=== PATIENT | female | born 1980 | race Caucasian/White ===

== ENCOUNTER → 2023-11-11 | Emergency (ER) | payer BC ==
[~2023-11-11] MED LIST: CEFTRIAXONE 1000 MG/VIAL ONE; FENTANYL CITR 100 MCG/2 ML ONE; HYDROMORPHONE HCL 1 MG/ML INJ ONE; MORPHINE 4 MG/ML SYR ONE; NA CHLORIDE 0.9% 1,000 ML ONE; NA CHLORIDE 0.9% 100 ML ONE; NA CHLORIDE 0.9% 2,000 ML ONE; NS KCL 20MEQ 1,000 ML IV ONE; ONDANSETRON 4 MG/2 ML VIAL ONE; PANTOPRAZOLE 40 MG INJ ONE; PIPERACIL/TAZO 3.375 GM VIAL IV ONE; PROMETHAZINE INJ 25 MG/ML AMP ONE
--- OUTSIDE RECORDS SUMMARY | 2023-11-11 18:03 | XMS REPORT | Continuity of Care Document ---
Author Name Unknown Address [address] [facility] [address] [place] [address] [facility] Address [address] [facility] [address] [place] [address] Care Team Providers Care Public Health Social Worker Name Role Phone Mabel Tavarez Primary Care Physician [phone] SISSON_C Attending Clinician Unavailable GC_GCBZW_Geronimoa_S Attending Clinician Unavaila nelly Pob, [facility] Lab Main Attending Clinician Delvis Orozco MD Attending Clinician [phone] DELVIS CABRAL Attending Clinician Elkin gonsalez Doctor Unassigned, [place] Attending Clinician U Alvaro Aquino DO Attending Clinician [phone] Rowdy Downing MD Attending Clinician [phone] ALVARO IGLESIAS Attending Clinician Unavailable SISSON_Ian Admitting Clinician Unavailable GC_GCBZW_Penelopeyala_S Admitting Clinician Unavaila nelly Payers Payer Name Policy Type Policy Number Effective Date Expirati on Date Source Problems Condition Name Condition Details Condition Category Status Onset Date Resolution Date Last Treatment Date Treating Clinician Comments Source No known active problems No known active problems Disease [facility] Allergies, Adverse Reactions, Alerts Allergy Name Allergy Type Status Severity Reaction(s) Onset Date Inactive Date Treating Clinician Comments Source NO KNOWN ALLERGIE S Drug Class Active [facility] Social History Social Habit Start Date Stop Date Quantity Comments Source Exposure to SARS-CoV-2 (event) Yes [facility] Sex Assigned At 1980 00:00:00 1980 00:00:00 [facility] Smoking Status Start Date Stop Date Source Tobacco smoking consumption unknown [facility] Medications Ordered Medication Name Filled Medication Name Start Date Stop Date Current Medication? Ordering Clinician Indication Dosage Frequency Signature (SIG) Comments Components Source ondansetron (ZOFRAN-ODT ) disintegrat ing tablet 4 mg 04-08 06:00: 00 04-08 05:00 :00 No 4mg 4 mg, Oral, ONCE, 1 dose, 04/08/20 at 0100, Routine [facility] HYDROcodone -acetaminop hen (NORCO) 10-325 mg tablet 1 tablet 04-08 04:45: 00 04-08 03:32 :00 No 1{tbl} 1 tablet, Oral, ONCE, 1 dose, [facility] 04/07/20 at 2345, Routine [facility] iohexol (OMNIPAQUE 350 BULK-75 mL) injection 75 mL 04-08 00:30: 00 04-08 00:30 :00 No 75mL 75 mL, Intravenou s, ONCE, 1 dose, [facility] 04/07/20 at 1945, Routine [facility] azithromyci n 250 mg tablet 04-08 00:00: 00 Yes [id number] 250mg Take 1 tablet by mouth daily. [facility] ondansetron (ZOFRAN) 4 mg tablet 04-08 00:00: 00 Yes [id number] 4mg Take 1 tablet by mouth every 8 (eight) hours as needed for Nausea and Vomiting (N/V). [facility] benzonatate 200 mg capsule 04-08 00:00: 00 Yes [id number] 200mg Take 1 capsule by mouth 3 (three) times daily as needed for Cough. [facility] ondansetron (ZOFRAN ODT) 4 mg disintegrat ing tablet 04-08 00:00: 00 Yes [id number] 4mg Take 1 tablet by mouth every 8 (eight) hours as needed for Nausea and Vomiting (N/V). [facility] azithromyci n 250 mg tablet 04-08 00:00: 00 Yes [id number] 250mg Take 1 tablet by mouth daily. [facility] ondansetron (ZOFRAN) 4 mg tablet 04-08 00:00: 00 Yes [id number] 4mg Take 1 tablet by mouth every 8 (eight) hours as needed for Nausea and Vomiting (N/V). [facility] benzonatate 200 mg capsule 04-08 00:00: 00 Yes [id number] 200mg Take 1 capsule by mouth 3 (three) times daily as needed for Cough. [facility] ondansetron (ZOFRAN ODT) 4 mg disintegrat ing tablet 04-08 00:00: 00 Yes [id number] 4mg Take 1 tablet by mouth every 8 (eight) hours as needed for Nausea and Vomiting (N/V). [facility] azithromyci n 250 mg tablet 04-08 00:00: 00 Yes [id number] 250mg Take 1 tablet by mouth daily. [facility] ondansetron (ZOFRAN) 4 mg tablet 04-08 00:00: 00 Yes [id number] 4mg Take 1 tablet by mouth every 8 (eight) hours as needed for Nausea and Vomiting (N/V). [facility] benzonatate 200 mg capsule 04-08 00:00: 00 Yes [id number] 200mg Take 1 capsule by mouth 3 (three) times daily as needed for Cough. [facility] ondansetron (ZOFRAN ODT) 4 mg disintegrat ing tablet 04-08 00:00: 00 Yes [id number] 4mg Take 1 tablet by mouth every 8 (eight) hours as needed for Nausea and Vomiting (N/V). [facility] azithromyci n 250 mg tablet 04-08 00:00: 00 Yes [id number] 250mg Take 1 tablet by mouth daily. [facility] ondansetron (ZOFRAN) 4 mg tablet 04-08 00:00: 00 Yes [id number] 4mg Take 1 tablet by mouth every 8 (eight) hours as needed for Nausea and Vomiting (N/V). [facility] benzonatate 200 mg capsule 04-08 00:00: 00 Yes [id number] 200mg Take 1 capsule by mouth 3 (three) times daily as needed for Cough. [facility] ondansetron (ZOFRAN) 4 mg tablet 04-08 00:00: 00 Yes [id number] 4mg Take 1 tablet by mouth every 8 (eight) hours as needed for Nausea and Vomiting (N/V). [facility] benzonatate 200 mg capsule 04-08 00:00: 00 Yes [id number] 200mg Take 1 capsule by mouth 3 (three) times daily as needed for Cough. [facility] ondansetron (ZOFRAN ODT) 4 mg disintegrat ing tablet 04-08 00:00: 00 Yes [id number] 4mg Take 1 tablet by mouth every 8 (eight) hours as needed for Nausea and Vomiting (N/V). [facility] ondansetron (ZOFRAN ODT) 4 mg disintegrat ing tablet 04-08 00:00: 00 Yes [id number] 4mg Take 1 tablet by mouth every 8 (eight) hours as needed for Nausea and Vomiting (N/V). [facility] azithromyci n 250 mg tablet 04-08 00:00: 00 Yes [id number] 250mg Take 1 tablet by mouth daily. [facility] NaCl 0.9% (NS) bolus infusion 1,000 mL 04-08 00:00: 00 04-08 05:00 :00 No 1000mL at 999 mL/hr, 1,000 mL, IV Piggyback, ONCE, 1 dose, [facility] 04/07/20 at 1900, STAT [facility] compounded medication Semagltuide sq qw compounded medication Semagltuide sq qw No compounded medication Semagltuid e sq qw [facility] ondansetron 4 mg disintegrat ing tablet Place 1 tablet every 6 hours by translingua l route as needed. ondansetron 4 mg disintegr[address] ing tablet Place 1 tablet every 6 hours by translingua l route as needed. No 1 Q6H ondansetro n 4 mg disintegra ting tablet Place 1 tablet every 6 hours by translingu al route as needed. [facility] bromphenira mine-pseudo ephedrine-D M 2 mg-30 mg-10 mg/5 mL oral syrup TAKE 10 ML EVERY 8 HOURS NEEDED FOR COUGH AND CONGESTION bromphenira mine-pseudo ephedrine-D M 2 mg-30 mg-10 mg/5 mL oral syrup TAKE 10 ML EVERY 8 HOURS NEEDED FOR COUGH AND CONGESTION No bromphenir amine-pseu doephedrin e-DM 2 mg-30 mg-10 mg/5 mL oral syrup TAKE 10 ML EVERY 8 HOURS NEEDED FOR COUGH AND CONGESTION [facility] compounded medication Semagltuide sq qw compounded medication Semagltuide sq qw No compounded medication Semagltuid e sq qw [facility] compounded medication Semagltuide sq qw compounded medication Semagltuide sq qw No compounded medication Semagltuid e sq qw [facility] Kristalose 20 gram oral packet TAKE 1-2 PACKETS BY MOUTH DAILY. Kristalose 20 gram oral packet TAKE 1-2 PACKETS BY MOUTH DAILY. No Kristalose 20 gram oral packet TAKE 1-2 PACKETS BY MOUTH DAILY. [facility] lactulose 10 gram/15 mL oral solution TAKE 15 ML BY MOUTH DAILY lactulose 10 gram/15 mL oral solution TAKE 15 ML BY MOUTH DAILY No lactulose 10 gram/15 mL oral solution TAKE 15 ML BY MOUTH DAILY [facility] ondansetron 4 mg disintegrat ing tablet PLACE 1 TABLET ON THE TONGUE EVERY 6 HOURS NEEDED ondansetron 4 mg disintegrat ing tablet PLACE 1 TABLET ON THE TONGUE EVERY 6 HOURS NEEDED No ondansetro n 4 mg disintegra ting tablet PLACE 1 TABLET ON THE TONGUE EVERY 6 HOURS NEEDED [facility] oseltamivir 75 mg capsule TAKE 1 CAPSULE BY MOUTH TWICE A DAY oseltamivir 75 mg capsule TAKE 1 CAPSULE BY MOUTH TWICE A DAY No oseltamivi r 75 mg capsule TAKE 1 CAPSULE BY MOUTH TWICE A DAY [facility] promethazin e 25 mg tablet TAKE 1 TABLET BY MOUTH EVERY 4 TO 6 HOURS NEEDED FOR NAUSEA promethazin e 25 mg tablet TAKE 1 TABLET BY MOUTH EVERY 4 TO 6 HOURS NEEDED FOR NAUSEA No promethazi ne 25 mg tablet TAKE 1 TABLET BY MOUTH EVERY 4 TO 6 HOURS NEEDED FOR NAUSEA [facility] compounded medication Semagltuide sq qw compounded medication Semagltuide sq qw No compounded medication Semagltuid e sq qw [facility] ondansetron 4 mg disintegrat ing tablet Place 1 tablet every 6 hours by translingua l route as needed. ondansetron 4 mg disintegrat ing tablet Place 1 tablet every 6 hours by translingua l route as needed. No 1 Q6H ondansetro n 4 mg disintegra ting tablet Place 1 tablet every 6 hours by translingu al route as needed. [facility] Vital Signs Vital Name Observation Time Observation Value Comments S ource BP Diastolic 2023-09-20 00:00:00 93 mm[Hg] [facility] BP Systolic 2023-09-20 00:00:00 131 mm[Hg] [facility] Body Weight 2023-09-20 00:00:00 3194 [oz_av] [facility] BMI (Body Mass Index) 2023-09-20 00:00:00 35.4 kg/m2 [facility] Height 2023-09-20 00:00:00 63 [in_i] [facility] Body Weight 2023-06-19 00:00:00 3637 [oz_av] [facility] BP Diastolic 2023-06-19 00:00:00 73 mm[Hg] [facility] BMI (Body Mass Index) 2023-06-19 00:00:00 40.3 kg/m2 [facility] Height 2023-06-19 00:00:00 63 [in_i] [facility] BP Systolic 2023-06-19 00:00:00 137 mm[Hg] [facility] Heart rate 2020-04-08 04:30:00 84 /min [facility] Respiratory rate 2020-04-08 04:30:00 15 /min [facility] Oxygen saturation in Arterial blood by Pulse oximetry 2020-04-08 04:30:00 96 /min [facility] Systolic blood pressure 2020-04-08 04:00:00 117 mm[Hg] [facility] Diastolic blood pressure 2020-04-08 04:00:00 74 mm[Hg] [facility] Body temperature 2020-04-07 22:42:00 36.44 Megha [facility] Body height 2020-04-07 22:42:00 160 cm [facility] Body weight 2020-04-07 22:42:00 97.523 kg [facility] BMI 2020-04-07 22:42:00 38.09 kg/m2 [facility] Heart rate 2020-04-08 04:30:00 84 /min [facility] Respiratory rate 2020-04-08 04:30:00 15 /min [facility] Oxygen saturation in Arterial blood by Pulse oximetry 2020-04-08 04:30:00 96 /min [facility] Systolic blood pressure 2020-04-08 04:00:00 117 mm[Hg] [facility] Diastolic blood pressure 2020-04-08 04:00:00 74 mm[Hg] [facility] Body temperature 2020-04-07 22:42:00 36.44 Megha [facility] Body height 2020-04-07 22:42:00 160 cm [facility] Body weight 2020-04-07 22:42:00 97.523 kg [facility] BMI 2020-04-07 22:42:00 38.09 kg/m2 [facility] Procedures Procedure Date / Time Performed Performing Clinician Source ANTI-NUCLEAR ANTIBODY SCREEN 2022-11-16 14:33:00 Melissa Leigh [facility] ANTI-NUCLEAR ANTIBODY-PATHOLOGIST INTERPRETATION 2022-11-16 14:33:00 Melissa Leigh [facility] C-REACTIVE PROTEIN 2022-11-16 14:33:[facility] 2022-11-16 14:33:00 Melissa Leigh [facility] FREE T4 2022-11-16 14:33:00 Melissa Leigh [facility] THYROID STIMULATING HORMONE 2022-11-16 14:33:00 Melissa Leigh [facility] COMP. METABOLIC PANEL ([id number]) 2022-11-16 14:33:00 [facility] SED[facility]ENT[facility] RATE 2022-11-16 14:33:00 Reese [facility] CBC WITH DIFF 2022-11-16 14:33:00 Melissa Leigh [facility] URINALYSIS 2022-11-16 14:33:00 Melissa Leigh [facility] URINE CULTURE 2022-11-16 14:33:00 Melissa Leigh [facility] VITAMIN D, 25-OH 2022-11-16 14:33:00 Melissa [facility] ASSIGNMENT OF BENEFITS 2022-11-16 13:57:43 Docto r Unassigned, [place] [facility] CT CHEST PULMONARY ANGIOGRAM 2020-04-08 00:38:55 Rowdy Downing [facility] XR CHEST 1 VW 2020-04-07 23:52:10 Alvaro Iglesias [facility] FERRITIN SERUM 2020-04-07 23:10:[address] [facility] COMP. METABOLIC PANEL ([id number]) 2020-04-07 23:10:00 Alvaro Iglesias [facility] CBC WITH DIFF 2020-04-07 23:10:00 Alvaro Iglesias [facility] D-DIMER 2020-04-07 23:10:00 Alvaro Iglesias [facility] NOTICE OF PRIVACY PRACTICES 2020-04-07 22:33:44 Doctor Unassigned, [place] [facility] Encounters Start Date/Time End Date/Time Encounter Type Admission Type Attending Clinicians Care Facility Care Department Encounter ID Source 2023-09-20 00:00:00 2023-09-20 00:00:00 Outpatient SISSON_C [facility] [id number] [facility] 2023-09-20 00:00:00 2023-09-20 00:00:00 Lazaro Aguilera, MSN, INVESTMENT UNDERWRITER, SENIOR ELECTRONICS TECHNICIAN-C: [address], [place] [address] , Ph. [facility], Lazaro Aguilera, MSN, SENIOR ELECTRONICS TECHNICIAN-C [id number] [facility] 2023-09-05 00:00:00 2023-09-05 00:00:00 Outpatient SISSON_C [facility] [id number] [facility] 2023-07-23 00:00:00 2023-07-23 00:00:00 Outpatient SISSON_C [facility] [id number] [facility] 2023-07-14 00:00:00 2023-07-14 00:00:00 Outpatient GC_GCBZW_Ka diyala_S [facility] [id number] [facility] 2023-06-19 00:00:00 2023-06-19 00:00:00 Outpatient SISSON_C [facility] [id number] [facility] 2023-06-19 00:00:00 2023-06-19 00:00:00 Lazaro Aguilera, MSN, INVESTMENT UNDERWRITER, SENIOR ELECTRONICS TECHNICIAN-C: [address], [place] [address] , Ph. [facility], Lazaro Aguilera, MSN, SENIOR ELECTRONICS TECHNICIAN-C [id number] [facility] 2023-04-10 00:00:00 2023-04-10 00:00:00 Outpatient ALEXA [facility] [id number] [facility] 2022-11-16 08:00:00 2022-11-16 08:15:00 Vending Machine Servicer Visit [place], Adc Lab Main [facility] [id number] [facility] 2022-11-16 08:00:00 2022-11-16 08:00:00 Outpatient Cailin DELVIS CABRAL [facility] [id number] [facility] 2022-11-16 00:00:00 2022-11-16 00:00:00 Orders Only Doctor Unassigned, [place] [facility] [id number] [facility] 2020-04-07 17:45:47 2020-04-08 01:42:00 [facility] [id number] [facility] 2020-04-07 17:45:47 2020-04-08 01:42:00 [facility] [id number] 2020-04-07 17:45:47 2020-04-07 17:45:47 Emergency X ALVARO IGLESIAS [facility] ERT [id number] [facility] Results Test Description Test Time Test Comments Results Result Comments Source ANTI-NUCLEAR ANTIBODY-PATHOLOGI ST INTERPRETATION 23:47:59 SANDRA - Pathologist InterpretationANA HEp-2 IIFA Pathologist Interpretation Report Patient Name: Bradford Fatima ? : 1980 ??Antinuclear Antibody (SANDRA) Test (Anti-Cell Antibodies Test) Indirect Immunofluorescence Assay on HEp-2 Cells Screening titer: 1:80 (adults, > 18 years old), 1:40 (pediatrics, <= 18 years old)?Result: The antinuclear antibody (SANDRA) screen is negative on interpretation. Remarks:This patient has a negative antinuclear antibody (SANDRA) screening test. This suggests that the patient likely does not have a systemic autoimmune rheumatic disease that is strongly associated with a positive SANDRA, such as systemic lupus erythematosus (SANDRA positive in ~95-100%), systemic sclerosis (SANDRA positive in ~60-80%), or the following disorders in which SANDRA positivity is part of the diagnostic criteria: drug-induced lupus, autoimmune hepatitis, or mixed connective tissue disease. However, the SANDRA may be negative in rare cases of systemic lupus erythematosus and systemic sclerosis. The SANDRA may also be negative in ~20% of patients presenting with autoimmune hepatitis. Additionally, SANDRA positivity is less sensitive in the diagnosis of Sjogren's syndrome (~40-70%) and dermatomyositis/polym yositis (~30-80%). The SANDRA also has limited diagnostic utility in vasculitis, as the SANDRA may be negative in this autoimmune condition. The SANDRA test is not useful for the diagnosis of rheumatoid arthritis, multiple sclerosis, idiopathic thrombocytopenic purpura, thyroid disease, discoid lupus, or fibromyalgia. ? Therefore, a diagnosis cannot be based exclusively on SANDRA detection and/or pattern and thus should be made via the integration of patient history, physical exam findings, and other diagnostic tests as clinically indicated. References: - Lamonte A, Phillip R, Tawanda J, Alverto DH, Magdaleno PERSON. Guidelines for clinical use of the antinuclear antibody test and tests for specific autoantibodies to nuclear antigens. [employer]. Arch Pathol Lab Med. 2000;124(1):71-81. doi:10.5858/1999-124- [id number]-GFCUMARTÍN- Jens CL, Harley D, Yeison DN, et al. Diagnosis and Management of Autoimmune Hepatitis in Adults and Children: 2019 Practice Guidance and Guidelines From the [place] for the Study of Liver Diseases. Hepatology. 2020;72(2):671-722. doi:10.1002/hep.89526 - Familia C, Jono BECKER, Bre Duque. Rational use of blood tests in the evaluation of rheumatic diseases. Mo Med. 2012;109(1):59-63. Maricel Ellis MD ?11/19/2022 ?5:47 PM11/19/2022 5:47 PM [facility] [id number] 15:51:56* Test Item Value Reference Range Interpretation Comme nts C3 (test code = 2441956205) 160 mg/dL 86-184 Lab Interpretation (test cod e = 85092-5) Normal [place] [address] [id number] 15:51:56* Test Item Value Reference Range Interpretation Comme nts C4 (test code = 8570159805) 31 mg/dL 20-59 Lab Interpretation (test cod e = 73175-7) Normal [facility] [id number] 15:51:56* Test Item Value Reference Range Interpretation Comme nts CRP (test code = 3833780812) 0.8 mg/dL <=0.8 H Lab Interpretation (test cod e = 05285-8) Abnormal [facility] [id number] 15:51:56* Test Item Value Reference Range Interpretation Comme nts C3 (test code = 2979477813) 160 mg/dL 86-184 Lab Interpretation (test cod e = 94730-7) Normal [facility] [id number] 15:51:56* Test Item Value Reference Range Interpretation Comme nts C4 (test code = 4026092892) 31 mg/dL 20-59 Lab Interpretation (test cod e = 19536-8) Normal [facility] [id number] 15:51:56* Test Item Value Reference Range Interpretation Comme nts CRP (test code = 1876592005) 0.8 mg/dL <=0.8 H Lab Interpretation (test cod e = 37427-6) Abnormal [facility], [id number] 22:16:42* Test Item Value Reference Range Interpretation Comme nts VIT D 25OH (test code = 65616-8) 40 ng/mL 25-80 FEDE (test code = FEDE) Deficiency: <20 ng/mLInsufficiency : 20-24 ng/mLOptimal: 25-80 ng/mL Lab Interpretation (test code = 93113-8) Normal [facility], [id number] 22:16:42* Test Item Value Reference Range Interpretation Comme nts VIT D 25OH (test code = 99617-2) 40 ng/mL 25-80 FEDE (test code = FEDE) Deficiency: <20 ng/mLInsufficiency : 20-24 ng/mLOptimal: 25-80 ng/mL Lab Interpretation (test code = 39975-4) Normal [facility] [id number] 17:37:53* Test Item Value Reference Range Interpretation Comme nts ESR (test code = 50665-3) 15 See_Comment [Automated message] The system which generated this result transmitted reference range: 0 - 20 mm/HR. The reference range was not used to interpret this result as normal/abnormal. Lab Interpretation (test code = 83181-0) Normal [facility] [id number] 17:37:53* Test Item Value Reference Range Interpretation Comme nts ESR (test code = 59485-7) 15 See_Comment [Automated message] The system which generated this result transmitted reference range: 0 - 20 mm/HR. The reference range was not used to interpret this result as normal/abnormal. Lab Interpretation (test code = 61135-4) Normal [facility] 16:49:12* Test Item Value Reference Range Interpretation Comme nts FREE T4 (test code = 8703562474) 1.13 See_Comment [Automated messa ge] The system which generated this result transmitted reference range: 0.78 - 2.20 ng/dL:. The reference range was not used to interpret this result as normal/abnormal. Lab Interpretation (test code = 39945-5) [facility] 16:49:12* Test Item Value Reference Range Interpretation Comme nts FREE T4 (test code = 0005676545) 1.13 See_Comment [Automated messa ge] The system which generated this result transmitted reference range: 0.78 - 2.20 ng/dL:. The reference range was not used to interpret this result as normal/abnormal. Lab Interpretation (test code = 15115-5) Normal [facility] [id number] 16:46:49 * Test Item Value Reference Range Interpretation Comme nts TSH (test code = 5397048722) 3.54 See_Comment [Automated messa ge] The system which generated this result transmitted reference range: 0.45 - 4.70 mIU/L. The reference range was not used to interpret this result as normal/abnormal. Lab Interpretation (test code = 39255-1) Normal [facility] [id number] 16:46:49 * Test Item Value Reference Range Interpretation Comme nts TSH (test code = 6682428894) 3.54 See_Comment [Automated messa ge] The system which generated this result transmitted reference range: 0.45 - 4.70 mIU/L. The reference range was not used to interpret this result as normal/abnormal. Lab Interpretation (test code = 95194-7) Normal [facility]. METABOLIC PANEL (89377)2022-11-16 16:23:05* Test Item Value Reference Range Interpretation Comme nts NA (test code = 2652869645) 138 mmol/L 135-145 K (test code = 3757036341) 4.2 mmol/L 3.5-5.0 CL (test code = 8340056934) 101 mmol/L 98-108 CO2 TOTAL (test code = 0520389511) 29 mmol/L 23-31 AGAP (test code = 1504623760) 8 2-16 BUN (test code = 3605576516) 15 mg/dL 7-23 GLUCOSE (test code = 1753785336) 92 mg/dL 70-110 CREATININE (test code = 8753840557) 0.64 mg/dL 0.50-1.04 TOTAL BILI (test code = 7813494450) 0.6 mg/dL 0.1-1.1 CALCIUM (test code = 7615992345) 9.1 mg/dL 8.6-10.6 T PROTEIN (test code = 3344322519) 7.3 g/dL 6.3-8.2 ALBUMIN (test code = 0816262176) 4.5 g/dL 3.5-5.0 ALK PHOS (test code = 5405551503) 56 U/L 34-122 ALTv (test code = 1742-6) 41 U/L 5-35 H AST(SGOT) (test code = 6851617637) 31 U/L 13-40 eGFR (test code = 8422873294) 102.3 mL/min/1.73m2 FEDE (test code = FEDE) Association of Glomerular Filtration Rate (GFR) and Staging of Kidney Disease* + --+ --+ ------+| GFR (mL/min/1.73 m2) ?| With Kidney Damage ?| ?Without Kidney Damage+ --------+ --------+ +| ?>90 ?| ?Stage one ?| ? Normal ?+ ---+ ---+ -------+| ?60-89 ?| ?Stage two ?| ? Decreased GFR ? + --+ --+ ------+| ?30-59 ?| ?Stage three ?| ? Stage three ? + --+ --+ ------+| ?15-29 ?| ?Stage four ? | ? Stage four ?+ ---+ ---+ -------+| ?<15 (or dialysis) ? ?| ?Stage five ? | ? Stage five ?+ ---+ ---+ -------+ *Each stage assumes the associated GFR level has been in effect for at least three months. ?Stages 1 to 5, with or without kidney disease, indicate chronic kidney disease. Notes: Determination of stages one and two (with eGFR >59mL/min/1.73 m2) requires estimation of kidney damage for at least three months as defined by structural or functional abnormalities of the kidney, manifested by either:Pathological abnormalities or Markers of kidney damage (including abnormalities in the composition of the blood or urine or abnormalities in imaging tests). Lab Interpretation (test code = 83051-5) Abnormal [facility]. METABOLIC PANEL ([id number])2022-11-16 16:23:05* Test Item Value Reference Range Interpretation Comme nts NA (test code = 8332254768) 138 mmol/L 135-145 K (test code = 1361090415) 4.2 mmol/L 3.5-5.0 CL (test code = 6258951056) 101 mmol/L 98-108 CO2 TOTAL (test code = 1399376633) 29 mmol/L 23-31 AGAP (test code = 3758633114) 8 2-16 BUN (test code = 0003552924) 15 mg/dL 7-23 GLUCOSE (test code = 6973803231) 92 mg/dL 70-110 CREATININE (test code = 9557874504) 0.64 mg/dL 0.50-1.04 TOTAL BILI (test code = 8594751420) 0.6 mg/dL 0.1-1.1 CALCIUM (test code = 3545589743) 9.1 mg/dL 8.6-10.6 T PROTEIN (test code = 9363322899) 7.3 g/dL 6.3-8.2 ALBUMIN (test code = 3213129726) 4.5 g/dL 3.5-5.0 ALK PHOS (test code = 6923261090) 56 U/L 34-122 ALTv (test code = 1742-6) 41 U/L 5-35 H AST(SGOT) (test code = 2159369739) 31 U/L 13-40 eGFR (test code = 0297500693) 102.3 mL/min/1.73m2 FEDE (test code = FEDE) Association of Glomerular Filtration Rate (GFR) and Staging of Kidney Disease* + --+ --+ ------+| GFR (mL/min/1.73 m2) ?| With Kidney Damage ?| ?Without Kidney Damage+ --------+ --------+ +| ?>90 ?| ?Stage one ?| ? Normal ?+ ---+ ---+ -------+| ?60-89 ?| ?Stage two ?| ? Decreased GFR ? + --+ --+ ------+| ?30-59 ?| ?Stage three ?| ? Stage three ? + --+ --+ ------+| ?15-29 ?| ?Stage four ? | ? Stage four ?+ ---+ ---+ -------+| ?<15 (or dialysis) ? ?| ?Stage five ? | ? Stage five ?+ ---+ ---+ -------+ *Each stage assumes the associated GFR level has been in effect for at least three months. ?Stages 1 to 5, with or without kidney disease, indicate chronic kidney disease. Notes: Determination of stages one and two (with eGFR >59mL/min/1.73 m2) requires estimation of kidney damage for at least three months as defined by structural or functional abnormalities of the kidney, manifested by either:Pathological abnormalities or Markers of kidney damage (including abnormalities in the composition of the blood or urine or abnormalities in imaging tests). Lab Interpretation (test code = 74634-4) Abnormal [facility] WITH [id number] 14:45:11* Test Item Value Reference Range Interpretation Comme nts WBC (test code = 6690-2) 10.90 See_Comment [Automated [employer]] The system which generated this result transmitted reference range: 4.30 - 11.10 10*3/?L. The reference range was not used to interpret this result as normal/abnormal. RBC (test code = 789-8) 4.57 See_Comment [[employer]] The system which generated this result transmitted reference range: 3.93 - 5.25 10*6/?L. The reference range was not used to interpret this result as normal/abnormal. HGB (test code = 718-7) 13.4 g/dL 11.6-15.0 HCT (test code = 4544-3) 41.1 % 35.7-45.2 MCV (test code = 787-2) 89.9 fL 80.6-95.5 MCH (test code = 785-6) 29.3 pg 25.9-32.8 MCHC (test code = 786-4) 32.6 g/dL 31.6-35.1 RDW-SD (test code = 25451-8) 41.8 fL 39.0-49.9 RDW-CV (test code = 788-0) 12.7 % 12.0-15.5 PLT (test code = 777-3) 320 See_Comment [Automated [employer]] The system which generated this result transmitted reference range: 166 - 358 10*3/?L. The reference range was not used to interpret this result as normal/abnormal. MPV (test code = 68702-5) 10.0 fL 9.5-12.9 NRBC/100 WBC (test code = 3474386530) 0.0 See_Comment [Automated me ssage] The system which generated this result transmitted reference range: 0.0 - 10.0 /100 WBCs. The reference range was not used to interpret this result as normal/abnormal. NRBC x10^3 (test code = 1180176208) See_Comment [Automated messa ge] The system which generated this result transmitted reference range: 10*3/?L. The reference range was not used to interpret this result as normal/abnormal. GRAN MAT (NEUT) % (test code = 770-8) 69.8 % IMM GRAN % (test code = 5706083171) 0.90 % LYMPH % (test code = 736-9) 22.3 % MONO % (test code = 5905-5) 4.7 % EOS % (test code = 713-8) 1.8 % BASO % (test code = 706-2) 0.5 % GRAN MAT x10^3(ANC) (test code = 6405439586) 7.61 10*3/uL 1.88-7.09 H IMM GRAN x10^3 (test code = 8262214472) 0.10 10*3/uL 0.00-0.06 H LYMPH x10^3 (test code = 731-0) 2.43 10*3/uL 1.32-3.29 MONO x10^3 (test code = 742-7) 0.51 10*3/uL 0.33-0.92 EOS x10^3 (test code = 711-2) 0.20 10*3/uL 0.03-0.39 BASO x10^3 (test code = 704-7) 0.05 10*3/uL 0.01-0.07 Lab Interpretation (test code = 07526-4) Abnormal [facility] WITH [id number] 14:45:11* Test Item Value Reference Range Interpretation Comme nts WBC (test code = 6690-2) 10.90 See_Comment [Automated messa ge] The system which generated this result transmitted reference range: 4.30 - 11.10 10*3/?L. The reference range was not used to interpret this result as normal/abnormal. RBC (test code = 789-8) 4.57 See_Comment [Automated messa ge] The system which generated this result transmitted reference range: 3.93 - 5.25 10*6/?L. The reference range was not used to interpret this result as normal/abnormal. HGB (test code = 718-7) 13.4 g/dL 11.6-15.0 HCT (test code = 4544-3) 41.1 % 35.7-45.2 MCV (test code = 787-2) 89.9 fL 80.6-95.5 MCH (test code = 785-6) 29.3 pg 25.9-32.8 MCHC (test code = 786-4) 32.6 g/dL 31.6-35.1 RDW-SD (test code = 07299-3) 41.8 fL 39.0-49.9 RDW-CV (test code = 788-0) 12.7 % 12.0-15.5 PLT (test code = 777-3) 320 See_Comment [Automated messa ge] The system which generated this result transmitted reference range: 166 - 358 10*3/?L. The reference range was not used to interpret this result as normal/abnormal. MPV (test code = 59321-2) 10.0 fL 9.5-12.9 NRBC/100 WBC (test code = 0320117222) 0.0 See_Comment [Automated [employer] ssage] The system which generated this result transmitted reference range: 0.0 - 10.0 /100 WBCs. The reference range was not used to interpret this result as normal/abnormal. NRBC x10^3 (test code = 2429048593) See_Comment [Automated messa ge] The system which generated this result transmitted reference range: 10*3/?L. The reference range was not used to interpret this result as normal/abnormal. GRAN MAT (NEUT) % (test code = 770-8) 69.8 % IMM GRAN % (test code = 9829923526) 0.90 % LYMPH % (test code = 736-9) 22.3 % MONO % (test code = 5905-5) 4.7 % EOS % (test code = 713-8) 1.8 % BASO % (test code = 706-2) 0.5 % GRAN MAT x10^3(ANC) (test code = 1470054840) 7.61 10*3/uL 1.88-7.09 H IMM GRAN x10^3 (test code = 7336752533) 0.10 10*3/uL 0.00-0.06 H LYMPH x10^3 (test code = 731-0) 2.43 10*3/uL 1.32-3.29 MONO x10^3 (test code = 742-7) 0.51 10*3/uL 0.33-0.92 EOS x10^3 (test code = 711-2) 0.20 10*3/uL 0.03-0.39 BASO x10^3 (test code = 704-7) 0.05 10*3/uL 0.01-0.07 Lab Interpretation (test code = 02585-6) [facility] [id number] 01:05:351. ?No acute pulmonary embolism 2. ?CT findings suspicious for infection, including COVID-19 pneumonia. Preliminary Report Dictated by Resident: Jose L Cortés ?MD Dominik., have reviewed this study and agree with the abovereport.PROCEDURE: CT ANGIO CHEST WITH CONTRAST - PE PROTOCOL CLINICAL INDICATION: Shortness of breath Elevated D-Dimer, Covid+ ? COMPARISON: None. TECHNIQUE: ?Helical CT was performed and reconstructed at 1.25 mm slicethickness from lung base to apices after the administration of 75 mLOmnipaque-350 intravenous contrast, without complication. ?Display field ofview: 37 cm. FINDINGS: PULMONARY ARTERIES:Enhancement is adequate, and there is no acute or chronic pulmonaryembolism. Hypodensity in the proximal right upper lobar artery (7:106)projects out of the lumen onthe axial images and is likely artifactual. CHEST:Lower neck/thyroid: Unremarkable. Lungs: Ill-defined groundglass opacities are noted along the medial andbasal aspect of the upper lobes and middle lobe. Similar opacities arenoted and more peripheral distribution and lower lobes with superimposedareas of subsegmental atelectasis. Central airway: Unremarkable. Pleura: No pleural effusion, thickening or pneumothorax. Thoracic aorta and great vessels: Normal in diameter. Heart and pericardium: No detectable coronary arterial calcification.Unremarkable cardiac morphology and pericardium. Lymph nodes: A few prominent right hilar lymph nodes are noted measuring upto 0.9 cm, likely reactive. Mediastinum: Unremarkable. Thoracic spine and chest wall: Unremarkable, with normal thoracic vertebralbody heights. Other Lines/Tubes/Devices/Hardware: None Visualized upper abdomen: Unremarkable. [facility], Radiant Results Inft User - 04/07/2020 8:06 PM CDTPROCEDURE: CT ANGIO CHEST WITH CONTRAST - PE PROTOCOLCLINICAL INDICATION: Shortness of breath Elevated D-Dimer, Covid+ COM PARISON: None.TECHNIQUE: Helical CT was performed and reconstructed at 1.25 mm slicethickness from lung base to apices after the administration of 75 mLOmnipaque-350 intravenous contrast, without complication. Display field ofview: 37 cm.FINDINGS:PULMONARY ARTERIES:Enhancement is adequate, and there is no acute or chronic pulmonaryembolism. Hypodensity in the proximal right upper lobar artery (7:106)projects out of the lumen on the axial images and is likely artifactual.CHEST:Lower neck/thyroid: Unremarkable.Lungs: Ill-defined groundglass opacities are noted along the medial andbasal aspect of the upper lobes and middle lobe. Similar opacities arenoted and more peripheral distribution and lower lobes with superimposedareas of subsegmental atelectasis.Central airway: Unremarkable.Pleura: No pleural effusion, thickening or pneumothorax.Thoracic aorta and great vessels: Normal in diameter.Heart and pericardium: No detectable coronary arterial calcification.Unremarkable cardiac morphologyand pericardium.Lymph nodes: A few prominent right hilar lymph nodes are noted measuring upto 0.9 cm, likely reactive.Mediastinum: Unremarkable.Thoracic spine and chest wall: Unremarkable, with normal thoracic vertebralbody heights.Other Lines/Tubes/Devices/Hardware: NoneVisualized upper abdomen: Unremarkable. IMPRESSION1. No acute pulmonary embolism2. CT findings suspicious for infection, including COVID-19 pneumonia.Preliminary Report Dictated by Resident: Jose L Liang MD., have reviewed this study and agree with the abovereport.[facility] CenterFERRITIN [id number] 00:25:00* Test Item Value Reference Range Interpretation Comme nts FERRITIN (test code = 3988242568) 127.0 ng/mL 6-137 FEDE (test code = FEDE) Biotin has been reported to cause a negative bias, interpret results relative to patient's use of biotin. Lab Interpretation (test code = 20835-4) Normal [facility] WITH [id number] 00:04:00* Test Item Value Reference Range Interpretation Comme nts WBC (test code = 6690-2) See_Comment L [Automated messa ge] The system which generated this result transmitted reference range: 4.30 - 11.10 10*3/?L. The reference range was not used to interpret this result as normal/abnormal. RBC (test code = 789-8) See_Comment [Automated messa ge] The system which generated this result transmitted reference range: 3.93 - 5.25 10*6/?L. The reference range was not used to interpret this result as normal/abnormal. HGB (test code = 718-7) 14.5 g/dL 11.6-15 HCT (test code = 4544-3) 43.0 % 35.7-45.2 MCV (test code = 787-2) 85.0 fL 80.6-95.5 MCH (test code = 785-6) 28.7 pg 25.9-32.8 MCHC (test code = 786-4) 33.7 g/dL 31.6-35.1 RDW-SD (test code = 21273-3) 37.8 fL 39-49.9 L RDW-CV (test code = 788-0) 12.3 % 12-15.5 PLT (test code = 777-3) See_Comment [Automated messa ge] The system which generated this result transmitted reference range: 166 - 358 10*3/?L. The reference range was not used to interpret this result as normal/abnormal. MPV (test code = 64716-3) 11.0 fL 9.5-12.9 NRBC/100 WBC (test code = 3429914378) See_Comment [Automated me ssage] The system which generated this result transmitted reference range: 0.0 - 10.0 /100 WBCs. The reference range was not used to interpret this result as normal/abnormal. NRBC x10^3 (test code = 5298185552) <0.01 See_Comment [Automated [employer]a ge] The system which generated this result transmitted reference range: 10*3/?L. The reference range was not used to interpret this result as normal/abnormal. GRAN MAT (NEUT) % (test code = 770-8) 45.1 % IMM GRAN % (test code = 3981023173) 0.40 % LYMPH % (test code = 736-9) 49.1 % MONO % (test code = 5905-5) 4.7 % EOS % (test code = 713-8) 0.7 % BASO % (test code = 706-2) 0.0 % GRAN MAT x10^3(ANC) (test code = 1593469279) 1.26 10*3/uL 1.88-7.09 L IMM GRAN x10^3 (test code = 4354813614) <0.03 0-0.06 LYMPH x10^3 (test code = 731-0) 1.37 10*3/uL 1.32-3.29 MONO x10^3 (test code = 742-7) 0.13 10*3/uL 0.33-0.92 L EOS x10^3 (test code = 711-2) <0.03 0.03-0.39 L BASO x10^3 (test code = 704-7) <0.03 0.01-0.07 Lab Interpretation (test code = 53519-9) [facility]normal [facility] 1 [id number] 23:53:41CHEST PORTABLE ONE VIEW HISTORY:Shortness of breath TECHNIQUE: Frontal, portable projection of the chest is obtained. FINDINGS: Slightly increased opacities are seen in the lung bases likelyrelated to the lungs. Heart. In addition there is subtle increased hazyopacity in the right upper lobe. . Theheart size and mediastinal silhouette are normal. No pleural effusionor pneumothorax is seen. CONCLUSIONS: Slightly increased opacities in the lung bases are most likely related topoor inspiration, however in the presence of a subtle hazy opacity in theright upper lobe atypical viral infection cannot be excluded. PleasecorrelateUtmb, Radiant Results Inft User - 04/07/2020 6:54 PM CDTCHEST PORTABLE ONE VIEWHISTORY:Shortness of breathTECHNIQUE: Frontal, portable projection of the chest is obtained.FINDINGS: Slightly increased opacities are seen in the lung bases likelyrelated to the lungs. Heart. In addition there is subtle increased hazyopacity in the right upper lobe.. The heart size and mediastinal silhouette are normal. No pleural effusionor pneumothorax is seen.CONCLUSIONS:Slightly incr eased opacities in the lung bases are most likely related topoor inspiration, however in the presence of a subtle hazy opacity in theright upper lobe atypical viral infection cannot be excluded. PleasecorrelateUnBellville Medical CenterCOMP. METABOLIC PANEL ([id number])2020-04-07 23:51:00* Test Item Value Reference Range Interpretation Comme nts NA (test code = 0452810462) 140 mmol/L 135-145 K (test code = 4036693023) 3.3 mmol/L 3.5-5 L CL (test code = 8049840720) 103 mmol/L 98-108 CO2 TOTAL (test code = 0541036872) 24 mmol/L 23-31 AGAP (test code = 7595997718) 2-16 BUN (test code = 1360278079) 13 mg/dL 7-23 GLUCOSE (test code = 3211774296) 110 mg/dL 70-110 CREATININE (test code = 7153622886) 0.61 mg/dL 0.5-1.04 TOTAL BILI (test code = 1864031177) 0.4 mg/dL 0.1-1.1 CALCIUM (test code = 4674261204) 9.0 mg/dL 8.6-10.6 T PROTEIN (test code = 8328188131) 7.8 g/dL 6.3-8.2 ALBUMIN (test code = 0945799177) 4.5 g/dL 3.5-5 ALK PHOS (test code = 7544516568) 83 U/L 34-122 ALTv (test code = 1742-6) 80 U/L 5-35 H AST(SGOT) (test code = 0042243590) 119 U/L 13-40 H eGFR Calculation (Non-) (test code = 1459384261) mL/min/1.73m2 eGFR Calculation () (test code = 4348896546) mL/min/1.73m2 FEDE (test code = FEDE) Association of Glomerular Filtration Rate (GFR) and Staging of Kidney Disease* + --+ --+ ------+| GFR (mL/min/1.73 m2) ?| With Kidney Damage ?| ?Without Kidney Damage+ --------+ --------+ +| ?>90 ?| ?Stage one ?| ? Normal ?+ ---+ ---+ -------+| ?60-89 ?| ?Stage two ?| ? Decreased GFR ? + --+ --+ ------+| ?30-59 ?| ?Stage three ?| ? Stage three ? + --+ --+ ------+| ?15-29 ?| ?Stage four ? | ? Stage four ?+ ---+ ---+ -------+| ?<15 (or dialysis) ? ?| ?Stage five ? | ? Stage five ?+ ---+ ---+ -------+ *Each stage assumes the associated GFR level has been in effect for at least three months. ?Stages 1 to 5, with or without kidney disease, indicate chronic kidney disease. Notes: Determination of stages one and two (with eGFR >59mL/min/1.73 m2) requires estimation of kidney damage for at least three months as defined by structural or functional abnormalities of the kidney, manifested by either:Pathological abnormalities or Markers of kidney damage (including abnormalities in the composition of the blood or urine or abnormalities in imaging tests). Lab Interpretation (test code = 27423-3) Abnormal [facility] CenterD-[id number] 23:43:00* Test Item Value Reference Range Interpretation Comments D-DIMER (test code = 4054451558) See_Comment H [Automated message] The system which generated this result transmitted reference range: <0.41 ?g/mL (FEU). The reference range was not used to interpret this result as normal/abnormal. FEDE (test code = FEDE) This test may be used in conjunction with a clinical pretest probability (PTP) assessment model to exclude venous thromboembolism (VTE) in patients suspected of deep venous thrombosis (DVT) and pulmonary embolism (PE) A D-Dimer value less than 0.50 ?g/ml (FEU) has a negative predicative value of 96 to 100% (95% CI)and 97 to 100% (95% CI) as an aid in the diagnosis of deep vein thrombosis (DVT) and pulmonary embolism when there is low or moderate pretest probability of PE or DVT. D-Dimer values are expressed in initial fibrinogen equivalent units (FEU)" The assay results should be used with other information, including the clinical context, in forming a diagnosis. Lab Interpretation (test code = 74339-9) Abnormal [facility]
--- NOTE | 2023-11-11 18:59 | RAD REPORT ---
EXAM DESCRIPTION: CT - Stone Protocol - 11/11/2023 6:35 pm CLINICAL HISTORY: Abdominal pain. Flank pain. Hematuria COMPARISON: None. TECHNIQUE: Computed axial tomography of the abdomen pelvis was obtained without oral or IV contrast. Lack of IV and oral contrast limits evaluation of solid organs, appendix, bowel, and vessels. Mcgee l reformatted images were obtained and reviewed. All CT scans are performed using dose optimization technique as appropriate and may include automated exposure control or mA/KV adjustment according to patient size. FINDINGS: A renal calculus is not seen. An ureteral calculus is not noted. A bladder calculus is not present. No hydronephrosis The liver, spleen, pancreas and adrenals appear grossly normal There is no evidence of diverticulitis. Appendectomy No adnexal mass. Small umbilical hernia IMPRESSION: Negative for a genitourinary calculus
[2023-11-11 19:29] LABS: Hematocrit 39.1 % (36.0-45.0); Lymphocytes % 8.1 % (15.3-44.8); MPV 8.8 fL (7.6-11.3); Platelets 304 thou/uL (152-406); RBC Red Blood Cell Count 4.44 M/uL (3.86-4.86)
[2023-11-11 19:57] LABS: ALT/SGPT 187 U/L (13-56); AST/SGOT 127 U/L (15-37); Albumin 3.9 g/dL (3.4-5.0); Alkaline Phosphatase 101 U/L (45-117); BUN Blood Urea Nitrogen 11 mg/dL (7-18); Bicarbonate 25 mEq/L (21-32); Bilirubin Total 1.6 mg/dL (0.2-1.0); Glomerular Filtration Rate 111 ml/min (=/>90); Glucose Level 118 mg/dL (74-106); Potassium 3.4 mEq/L (3.5-5.1); Protein, Total 7.7 g/dL (6.4-8.2); Sodium Level 139 mEq/L (136-145)
[2023-11-11 20:00] LABS: Lipase > 5000 U/L (13-75)
--- NOTE | 2023-11-11 20:04 | EDPHYS ---
Physician Documentation [facility] Name: Bradford Crane Age: 43 yrs Sex: Female : 1980 Arrival Date: 11/11/2023 Time: 17:58 Bed 19 Private MD: ED Physician Gary Hamm HPI: 11/11 19:58 This 43 yrs old Female presents to ER via Ambulatory with complaints of inna Abdominal Pain, blood in urine, Vomiting, Low Back Pain, sent by urgent care. 19:58 The patient presents to the emergency department with nausea, vomiting, that is inna intermittent. Onset: The symptoms/episode began/occurred this morning. Possible causes: bad food exposure, GALLBLADDER. The symptoms are aggravated by pressure, food , The symptoms are alleviated by nothing. Associated signs and symptoms: Pertinent positives: abdominal pain, nausea, vomiting. Severity of symptoms: At their worst the symptoms were moderate in the emergency department the symptoms are unchanged. The patient has experienced similar episodes in the past, a few times. 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 - Social history:: Smoking status: Patient denies any tobacco usage or history of. ROS: 20:01 Constitutional: Negative for fever, chills, and weight loss, Eyes: Negative for injury, inna pain, redness, and discharge, ENT: Negative for injury, pain, and discharge, Neck: Negative for injury, pain, and swelling, Cardiovascular: Negative for chest pain, palpitations, and edema, Respiratory: Negative for shortness of breath, cough, wheezing, and pleuritic chest pain, Back: Negative for injury and pain, : Negative for injury, bleeding, discharge, and swelling, MS/Extremity: Negative for injury and deformity, Skin: Negative for injury, rash, and discoloration, Neuro: Negative for headache, weakness, numbness, tingling, and seizure, Psych: Negative for depression, anxiety, suicide ideation, homicidal ideation, and hallucinations, Allergy/Immunology: Negative for hives, rash, and allergies, Endocrine: Negative for neck swelling, polydipsia, polyuria, polyphagia, and marked weight changes, 20:01 Abdomen/GI: Positive for abdominal pain, nausea and vomiting, nausea, vomiting, abdominal cramps, of the epigastric area, right upper quadrant and left upper quadrant, Exam: 20:01 Constitutional: This is a well developed, well nourished patient who is awake, alert, inna and in no acute distress. Head/Face: Normocephalic, atraumatic. Eyes: Pupils equal round and reactive to light, extra-ocular motions intact. Lids and lashes normal. Conjunctiva and sclera are non-icteric and not injected. Cornea within normal limits. Periorbital areas with no swelling, redness, or edema. ENT: Nares patent. No nasal discharge, no septal abnormalities noted. Tympanic membranes are normal and external auditory canals are clear. Oropharynx with no redness, swelling, or masses, exudates, or evidence of obstruction, uvula midline. Mucous membranes moist. Neck: Trachea midline, no thyromegaly or masses palpated, and no cervical lymphadenopathy. Supple, full range of motion without nuchal rigidity, or vertebral point tenderness. No Meningismus. Chest/axilla: Normal chest wall appearance and motion. Nontender with no deformity. No lesions are appreciated. Cardiovascular: Regular rate and rhythm with a normal S1 and S2. No gallops, murmurs, or rubs. Normal PMI, no JVD. No pulse deficits. Respiratory: Lungs have equal breath sounds bilaterally, clear to auscultation and percussion. No rales, rhonchi or wheezes noted. No increased work of breathing, no retractions or nasal flaring. Back: No spinal tenderness. No costovertebral tenderness. Full range of motion. Skin: Warm, dry with normal turgor. Normal color with no rashes, no lesions, and no evidence of cellulitis. MS/ Extremity: Pulses equal, no cyanosis. Neurovascular intact. Full, normal range of motion. Neuro: Awake and alert, GCS 15, oriented to person, place, time, and situation. Cranial nerves II-XII grossly intact. Motor strength 5/5 in all extremities. Sensory grossly intact. Cerebellar exam normal. Normal gait. Psych: Awake, alert, with orientation to person, place and time. Behavior, mood, and affect are within normal limits. 20:01 Abdomen/GI: Inspection: abdomen appears normal, Bowel sounds: normal, Palpation: moderate abdominal tenderness, in the epigastric area, right upper quadrant and left upper quadrant, Liver: no appreciated palpable abnormalities, Hernia: not appreciated, Vital Signs: 18:26 BP 93 / 66; Pulse 99; Resp 16; Temp 98.5; Pulse Ox 100% ; Weight 86.18 kg; Height 5 ft. nj1 4 in. ; Pain 10/10; 20:35 BP 115 / 66; Pulse 83; Resp 16; Pulse Ox 100% on R/A; me1 21:00 BP 105 / 61; Pulse 76; Resp 16; Pulse Ox 100% on R/A; cm10 22:00 BP 102 / 63; Pulse 73; Resp 16; Pulse Ox 100% ; cm10 23:30 BP 112 / 75; Pulse 83; Resp 16; Pulse Ox 100% on R/A; cm10 11/12 00:30 BP 114 / 73; Pulse 76; Resp 16; Pulse Ox 100% ; Pain 0/10; 7 01:31 BP 113 / 70; Pulse 80; Resp 17; Pulse Ox 100% ; j7 02:30 BP 102 / 51; Pulse 86; Resp 16; Pulse Ox 99% ; j7 03:49 BP 113 / 85; Pulse 79; Resp 17; Pulse Ox 100% ; Pain 0/10; 7 11/11 18:26 Body Mass Index 32.61 (86.18 kg, 162.56 cm) [facility] 11/11 18:26 Pain Scale: Adult [facility] 11/12 00:30 Pain Scale: Adult jj7 03:49 Pain Scale: Adult jj7 MDM: 11/11 18:04 Patient medically screened. inna 20:06 Differential diagnosis: Nonspecific abd pain, gastritis, cholecystitis, pancreatitis, inna diverticulitis. Data reviewed: vital signs, nurses notes, lab test result(s), EKG, radiologic studies, CT scan, ultrasound. Consideration of Admission/Observation Escalation of care including admission/observation considered. I considered the following discharge prescriptions or medication management in the emergency department Medications were administered in the Emergency Department. See MAR. Independent interpretation of the following test(s) in the Emergency Department EKG: See my EKG interpretation above. Test considered but Not performed: MRI: NO MRCP. Historians other than the Patient: Spouse/Significant Other: WELL INFORMED. Care significantly affected by the following chronic conditions: NONE. Counseling: I had a detailed discussion with the patient and/or guardian regarding the historical points, exam findings, and any diagnostic results supporting the discharge/admit diagnosis, lab results, radiology results, the need to transfer to another facility, for higher level of care, [facility] does not immediately have the required specialist. 11/11 18:05 Order name: CBC with Diff; Complete Time: 19:[address] [facility] 11/11 18:05 Order name: CMP; Complete Time: 20:[address] [facility] 11/11 18:05 Order name: Lipase; Complete Time: 20:[address] [facility] 11/11 18:05 Order name: Test, Urine; Complete Time: 20:[address] [facility] 11/11 18:05 Order name: Urinalysis w/ reflexes; Complete Time: 20:[address] [facility] 11/11 18:05 Order name: CT Stone Protocol; Complete Time: 19:[address] [facility] 11/11 19:57 Order name: US Abdomen Limited; Complete Time: 22:[address] [facility] 11/11 20:05 Order name: EKG; Complete Time: 20:[address] [facility] 11/11 18:05 Order name: IV Saline Lock; Complete Time: 19:[address] [facility] 11/11 18:05 Order name: Labs collected and sent; Complete Time: 19:[address] [facility] 11/11 20:05 Order name: EKG - Nurse/Tech; Complete Time: 20:[address] [facility] Administered Medications: 19:21 Drug: Ondansetron IVP 4 mg IVP once; over 2 minutes Route: IVP; Site: left antecubital; hb 20:46 Follow up: Response: No adverse reaction; Nausea is decreased me1 19:21 Drug: morphine IVP or IV 4 mg IVP once over 4 mins Route: IVP; Infused Over: 4 mins; hb Site: left antecubital; 20:47 Follow up: Response: No adverse reaction; Pain is decreased me1 19:32 Drug: Rocephin IV 1 grams IV at per protocol once; Given slow IV push per pharmacy hb instructions Route: IV; Rate: per protocol; Site: left antecubital; 19:34 Follow up: Response: No adverse reaction; IV Status: Completed infusion me1 19:53 Drug: NS 0.9% IV 1000 ml IV at 1 bolus Per protocol; 1000 mL bolus Route: IV; Rate: 1 hb bolus; Site: left antecubital; 20:46 Follow up: IV Status: Completed infusion; IV Intake: 1000ml me1 20:13 Drug: Pantoprazole IVP 40 mg IVP once Route: IVP; Site: left antecubital; hb 20:47 Follow up: Response: No adverse reaction me1 20:13 Drug: HYDROmorphone IVP 1 mg IVP once Route: IVP; Site: left antecubital; hb 20:48 Follow up: Response: No adverse reaction; Pain is decreased me1 20:13 Drug: Promethazine IVP 12.5 mg IVP once Route: IVP; Site: left antecubital; hb 20:48 Follow up: Response: No adverse reaction; Nausea is decreased me1 20:34 Not Given (Duplicate Order): ns 0.9% 1000 ml IV at 125 ml/hr continuous inna 20:42 Drug: Piperacillin-Tazobactam IVPB 3.375 grams IVPB once over 60 mins; (mix in NS 100 me1 mL) Route: IVPB; Infused Over: 60 mins; Site: left antecubital; 21:11 Follow up: Response: No adverse reaction; IV Status: Completed infusion; IV Intake: cm10 100ml 20:42 Drug: NS 0.9% IV 1000 ml IV at 1 bolus Per protocol; 1000 mL bolus Route: IV; Rate: 1 me1 bolus; Site: left antecubital; 22:33 Follow up: Response: No adverse reaction; IV Status: Completed infusion; IV Intake: cm10 1000ml 20:44 Drug: NS 0.9% with KCl IV 20 mEq/L 1000 ml IV at 125 ml/hr continuous Route: IV; Rate: me1 125 ml/hr; Site: left antecubital; 11/12 03:50 Follow up: IV Status: IV converted to saline lock jj7 11/11 22:53 Drug: fentaNYL (PF) IVP 50 mcg IVP once Route: IVP; Site: left antecubital; cm10 23:43 Follow up: Response: No adverse reaction cm10 11/12 00:13 Drug: fentaNYL (PF) IVP 50 mcg IVP See Administration Instructions; every 30 minutes as jj7 needed for pain Route: IVP; Site: left antecubital; 00:32 Follow up: Response: Marked relief of symptoms; Pain is decreased jj7 02:03 Drug: fentaNYL (PF) IVP 50 mcg IVP once Route: IVP; Site: left antecubital; jj7 02:30 Follow up: Response: Marked relief of symptoms jj7 03:44 Drug: fentaNYL (PF) IVP 50 mcg IVP once Route: IVP; Site: left antecubital; jj7 03:49 Follow up: Response: Marked relief of symptoms jj7 Disposition Summary: 11/11/23 20:11 Transfer Ordered Notes: Transfer Location: [facility] inna Reason: Higher level of care inna Condition: Fair(11/11/23 20:11) inna Problem: new(11/11/23 20:11) inna Symptoms: have improved(11/11/23 20:11) inna Accepting Physician: TO [facility](11/12/23 03:49) jj7 Diagnosis - Biliary acute pancreatitis inna - Epigastric abdominal tenderness(11/11/23 20:11) inna - Elevated white blood cell count inna - Vomiting(11/11/23 20:11) inna - Calculus of gallbladder and bile duct with acute cholecystitis with obstruction inna - Hypokalemia inna Forms: - Medication Reconciliation Form inna - SBAR form inna Signatures: Dispatcher [employer] EDGary Valiente MD MD cha Page, Corey, PA PA Vi Mclaughlin RN RN hb Johnson, Juwairiyah RN PARTH jj7 Dorothy Parker RN RN nj1 Zuleika Garcia RN RN cm10 Maria Isabel Rocha RN RN me1 Genaro Key MD MD ec2 Corrections: (The following items were deleted from the chart) 11/11 20:08 20:04 Inpatient Admission inna inna 20:08 20:04 Stephane Hines inna inna 20:08 20:04 Telemetry/MedSurg (Inpatient) inna inna 20:08 20:04 Stable inna inna 20:08 20:04 new inna inna 20:08 20:04 have improved inna inna 20:08 20:04 Standard inna inna 20:08 20:04 inna inna 20:08 20:04 Epigastric abdominal tenderness inna inna 20:08 20:04 Vomiting inna inna 20:33 20:11 TO [facility] inna inna 20:34 20:33 [facility] 11/12 03:49 11/11 20:34 TO [facility] jj7
--- NOTE | 2023-11-11 20:04 | ER ---
Nurse's Notes [facility] Name: Bradford Crane Age: 43 yrs Sex: Female : 1980 Arrival Date: 11/11/2023 Time: 17:58 Bed 19 Private MD: Diagnosis: Biliary acute pancreatitis;Epigastric abdominal tenderness;Elevated white blood cell count;Vomiting;Calculus of gallbladder and bile duct with acute cholecystitis with obstruction;Hypokalemia Presentation: 11/11 18:26 Chief complaint: Patient states: "I think is my gallbladder". Vomiting, diarrhea, upper nj1 abdominal pain. Coronavirus screen: Vaccine status: Patient reports being unvaccinated. Ebola Screen: Patient denies travel to an Ebola-affected area in the 21 days before illness onset. Initial Sepsis Screen: Does the patient meet any 2 criteria? HR > 90 bpm. No. Patient's initial sepsis screen is negative. Does the patient have a suspected source of infection? No. Patient's initial sepsis screen is negative. Risk Assessment: Do you want to hurt yourself or someone else? Patient reports no desire to harm self or others. Onset of symptoms was November 11, 2023. 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 - Social history:: Smoking status: Patient denies any tobacco usage or history of. Screenin:25 [facility] ED Fall Risk Assessment (Adult) Score/Fall Risk Level 0 - 2 = Low Risk hb Oriented to surroundings, Maintained a safe environment. Abuse screen: Denies threats or abuse. Denies injuries from another. Nutritional screening: No deficits noted. Tuberculosis screening: No symptoms or risk factors identified. Assessment: 19:25 General: Appears in no apparent distress. uncomfortable, Behavior is cooperative, hb restless. Pain: Pain currently is 9 out of 10 on a pain scale. Neuro: Level of Consciousness is awake, alert, obeys commands, Oriented to person, place, time, situation. Cardiovascular: Patient's skin is warm and dry. Respiratory: Respiratory effort is even, unlabored, Respiratory pattern is regular, symmetrical. GI: Reports upper abdominal pain, nausea. : No signs and/or symptoms were reported regarding the genitourinary system. EENT: No signs and/or symptoms were reported regarding the EENT system. Derm: Skin is pink, warm \\T\\ dry. Musculoskeletal: No signs and/or symptoms reported regarding the musculoskeletal system. 20:48 General: Appears uncomfortable, ill, well groomed, well developed, well nourished, me1 Behavior is calm, cooperative, appropriate for age. GI: Bowel sounds present X 4 quads. Abd is soft X 4 quads Abdomen is tender to palpation in left upper quadrant and right upper quadrant and epigastric area Reports upper abdominal pain, nausea, vomiting. 21:11 Reassessment: Patient and/or family updated on plan of care and expected duration. Pain cm10 level reassessed. Patient is alert, oriented x 3, equal unlabored respirations, skin warm/dry/pink. Assumed care of patient at this time. Pt A\\T\\Ox4, respirations even and unlabored. Pt reports pain rated a 5 on pain scale and states that she does not need anything for pain at this time. Pt updated on plan of care, spouse at bedside. Pillow provided. Pt currently has IVF infusing, IV site clean, dry and intact. No s/s of infiltration. call light in reach. General: Appears in no apparent distress. uncomfortable, Behavior is calm, cooperative, appropriate for age. Pain: Complains of pain in left upper quadrant and right upper quadrant Pain currently is 5 out of 10 on a pain scale. Neuro: No deficits noted. Level of Consciousness is awake, alert, obeys commands, Oriented to person, place, time, situation. Cardiovascular: Reports Capillary refill Patient's skin is warm and dry. Respiratory: No deficits noted. Airway is patent Respiratory effort is even, unlabored, Respiratory pattern is regular, symmetrical. GI: Reports upper abdominal pain, nausea, vomiting. Derm: No deficits noted. Skin is intact, Skin is pink, warm \\T\\ dry. Musculoskeletal: No deficits noted. No signs and/or symptoms reported regarding the musculoskeletal system. Range of motion: intact in all extremities. 22:40 Reassessment: Pt complaining of pain at this time. Dr. Key made aware and verbal cm10 order for Fentanyl 50mcg IVP obtained. 23:44 Reassessment: Pt sleeping at this time, respirations even and unlabored. Family remains cm10 at bedside. 11/12 00:10 Reassessment: ASSUMED CARE OF PT. PT SITTING I BED. C/O ABD PAIN. ORDERED MEDS GIVEN. jj7 IV FLUIDS STILL INFUSING. VS [facility].FAMILY AT BEDSIDE. CALL [facility] IN REACH. 03:29 Reassessment: EMS CALLED SEVERAL. THIS NURSE CALLED AGAIN AND THE DISPATCHER STATES jj7 THEY SHOULD HAVE BEEN HERE ALREADY. I ASKED HOW LONG TO WAIT UNTIL I CALL HER BACK ABOUT THE EMS ARRIVAL. SHE STATES GIVE HER 5 MINUTES. 03:47 Reassessment: [facility] AT BEDSIDE TO TRANSPORT PT. tamara Vital Signs: 11/11 18:26 BP 93 / 66; Pulse 99; Resp 16; Temp 98.5; Pulse Ox 100% ; Weight 86.18 kg; Height 5 ft. nj1 4 in. ; Pain 10/10; 20:35 BP 115 / 66; Pulse 83; Resp 16; Pulse Ox 100% on R/A; me1 21:00 BP 105 / 61; Pulse 76; Resp 16; Pulse Ox 100% on R/A; cm10 22:00 BP 102 / 63; Pulse 73; Resp 16; Pulse Ox 100% ; cm10 23:30 BP 112 / 75; Pulse 83; Resp 16; Pulse Ox 100% on R/A; cm10 11/12 00:30 BP 114 / 73; Pulse 76; Resp 16; Pulse Ox 100% ; Pain 0/10; jj7 01:31 BP 113 / 70; Pulse 80; Resp 17; Pulse Ox 100% ; jj7 02:30 BP 102 / 51; Pulse 86; Resp 16; Pulse Ox 99% ; jj7 03:49 BP 113 / 85; Pulse 79; Resp 17; Pulse Ox 100% ; Pain 0/10; jj7 11/11 18:26 Body Mass Index 32.61 (86.18 kg, 162.56 cm) [facility] 11/11 18:26 Pain Scale: Adult [facility] 11/12 00:30 Pain Scale: Adult jj7 03:49 Pain Scale: Adult jj7 ED Course: 11/11 18:02 Patient arrived in ED. im 18:04 Gary Hamm MD is Attending Physician. inna 18:30 Triage completed. nj1 18:33 Arm band placed on. nj1 18:37 CT Stone Protocol In Process Unspecified. EDMS 19:21 Inserted saline lock: 22 gauge in left antecubital area, using aseptic technique. Blood hb collected. 19:25 Patient has correct armband on for positive identification. Provided Education on: hb tests, result times, medications, fall precautions r/t narcotic administration . 20:03 Stephane Hines MD is Hospitalizing Provider. inna 20:23 Maria Isabel Rocha, RN is Primary Nurse. me1 20:40 US Abdomen Limited In Process Unspecified. EDMS 21:08 initiated transfer spoke with isabela rivas. vk 21:20 Primary Nurse role handed off by Maria Isabel Rocha, PARTH ap3 21:33 patient accepted to [facility] to ora Lopez per Isabela rivas. vk 22:35 Report given to PARTH Perez at [facility]. cm10 23:45 No provider procedures requiring assistance completed. Patient transferred, IV remains cm10 in place. 11/12 00:00 called EMS to initiate transfer to [facility] ER confirmed. vk 00:00 called EMS to get ETA for patient advised 1-2 hours. vk 00:16 Greg Allen, PARTH is Primary Nurse. jj7 02:00 called EMS to get ETA on arrival stated they would be at hospital shortly. vk 02:30 called EMS to get arrival time advised 30 mins to charge nurse. vk 03:00 called EMS to follow up advised by dispatch they would be arriving in 5-10 mins. vk 03:40 EMS arrived to potato picker pt. vk Administered Medications: 11/11 19:21 Drug: Ondansetron IVP 4 mg IVP once; over 2 minutes Route: IVP; Site: left antecubital; hb 20:46 Follow up: Response: No adverse reaction; Nausea is decreased me1 19:21 Drug: morphine IVP or IV 4 mg IVP once over 4 mins Route: IVP; Infused Over: 4 mins; hb Site: left antecubital; 20:47 Follow up: Response: No adverse reaction; Pain is decreased me1 19:32 Drug: Rocephin IV 1 grams IV at per protocol once; Given slow IV push per pharmacy hb instructions Route: IV; Rate: per protocol; Site: left antecubital; 19:34 Follow up: Response: No adverse reaction; IV Status: Completed infusion me1 19:53 Drug: NS 0.9% IV 1000 ml IV at 1 bolus Per protocol; 1000 mL bolus Route: IV; Rate: 1 hb bolus; Site: left antecubital; 20:46 Follow up: IV Status: Completed infusion; IV Intake: 1000ml me1 20:13 Drug: Pantoprazole IVP 40 mg IVP once Route: IVP; Site: left antecubital; hb 20:47 Follow up: Response: No adverse reaction me1 20:13 Drug: HYDROmorphone IVP 1 mg IVP once Route: IVP; Site: left antecubital; hb 20:48 Follow up: Response: No adverse reaction; Pain is decreased me1 20:13 Drug: Promethazine IVP 12.5 mg IVP once Route: IVP; Site: left antecubital; hb 20:48 Follow up: Response: No adverse reaction; Nausea is decreased me1 20:34 Not Given (Duplicate Order): ns 0.9% 1000 ml IV at 125 ml/hr continuous inna 20:42 Drug: Piperacillin-Tazobactam IVPB 3.375 grams IVPB once over 60 mins; (mix in NS 100 me1 mL) Route: IVPB; Infused Over: 60 mins; Site: left antecubital; 21:11 Follow up: Response: No adverse reaction; IV Status: Completed infusion; IV Intake: cm10 100ml 20:42 Drug: NS 0.9% IV 1000 ml IV at 1 bolus Per protocol; 1000 mL bolus Route: IV; Rate: 1 me1 bolus; Site: left antecubital; 22:33 Follow up: Response: No adverse reaction; IV Status: Completed infusion; IV Intake: cm10 1000ml 20:44 Drug: NS 0.9% with KCl IV 20 mEq/L 1000 ml IV at 125 ml/hr continuous Route: IV; Rate: me1 125 ml/hr; Site: left antecubital; 11/12 03:50 Follow up: IV Status: IV converted to saline lock jj7 11/11 22:53 Drug: fentaNYL (PF) IVP 50 mcg IVP once Route: IVP; Site: left antecubital; cm10 23:43 Follow up: Response: No adverse reaction cm10 11/12 00:13 Drug: fentaNYL (PF) IVP 50 mcg IVP See Administration Instructions; every 30 minutes as jj7 needed for pain Route: IVP; Site: left antecubital; 00:32 Follow up: Response: Marked relief of symptoms; Pain is decreased jj7 02:03 Drug: fentaNYL (PF) IVP 50 mcg IVP once Route: IVP; Site: left antecubital; jj7 02:30 Follow up: Response: Marked relief of symptoms jj7 03:44 Drug: fentaNYL (PF) IVP 50 mcg IVP once Route: IVP; Site: left antecubital; jj7 03:49 Follow up: Response: Marked relief of symptoms jj7 Medication: 11/11 19:25 VIS not applicable for this client. hb Intake: 20:46 IV: 1000ml; Total: 1000ml. me1 21:11 IV: 100ml; Total: 1100ml. cm10 22:33 IV: 1000ml; Total: 2100ml. cm10 Outcome: 20:04 Decision to Hospitalize by Provider. [facility] 20:11 ER care complete, transfer ordered by . [facility] 11/12 03:47 Transferred by ground EMS [facility]. to [facility], Transfer jj7 form completed. X-rays sent w/ patient. Condition: improved 03:49 Patient left the ED. jj7 Signatures: Dispatcher [employer] Gary Larios MD MD cha Baxter, Heather, RN RN Valeria Gustafson RN PARTH [email or web address] Greg Allen RN RN jj7 Dorothy Parker RN RN nj1 Nafisa Lorenzana Clarissa RN RN cm10 Maria Isabel Rocha, RN RN me1 Nisa Thornton
[2023-11-11 20:13] LABS: Specific Gravity 1.028 (1.005-1.030)
[2023-11-11 20:18] LABS: Specific Gravity 1.028 (1.005-1.030); Urine Bacteria None Seen /HPF (<20); Urine Bilirubin NEGATIVE (Negative); Urine Blood 1+ (Negative); Urine Clarity Turbid (Clear); Urine Color Yellow (Yellow); Urine Glucose NEGATIVE (Negative); Urine Mucus 3+ /HPF (None Seen); Urine Protein TRACE (Negative); Urine RBC <5 /HPF (None Seen); Urine Urobilinogen Normal (Normal); Urine pH 5.5 (5.0-7.0)
--- NOTE | 2023-11-11 21:00 | RAD REPORT ---
EXAM DESCRIPTION: US - Abdomen Exam Limited - 11/11/2023 8:41 pm CLINICAL HISTORY: Abdominal pain. COMPARISON: November 11, 2023 cat scan FINDINGS: The gallbladder wall is not thickened. Multiple small gallstones The biliary tree is normal caliber. IMPRESSION: Cholelithiasis without evidence of cholecystitis
[2023-11-12 04:15] VITALS: BP 113/85; TEMP 98.5; O2SAT 100
--- NOTE | 2023-11-12 15:48 | EKG ---
Test Date: 2023-11-11 Test Time: 20:38:03 Folder And Notcher: CHYNA MEASUREMENT RESULTS: Intervals: Rate: 77 WA: 158 QRSD: 82 QT: 392 QTc: 443 [place]: P: 31 WA: 158 QRS: 79 T: 59 INTERPRETIVE STATEMENTS: Sinus rhythm with occasional premature ventricular complexes Otherwise normal ECG No previous ECG available for comparison Electronically Signed On 11-12-23 15:46:13 STOP ATTACHER by Yaakov Mancilla
== END ==
LOC: ER 17:58
DX: K80.63 Calculus of gallbladder and bile duct with acute cholecystitis with obstruction (principal); K85.10 Biliary acute pancreatitis without necrosis or infection; E87.6 Hypokalemia; D72.829 Elevated white blood cell count, unspecified; R11.10 Vomiting, unspecified
CPT/HCPCS: 93005; 85025; 81001; 36415; 81025; 83690; 80053; 76377; 74176; 76705; J2550; J2543; C9113; J3010; J1170; J2405; J7030 ×2; J0696; J3480